=== PATIENT | female | born 1995 | race Caucasian/White ===

== ENCOUNTER 2021-04-24 08:50 | Day surgery (SDCO) | payer OTHER ==
[~2021-04-24] VITALS: Ht 165.1 cm; Wt 63.5 kg
[2021-04-24 09:38] LABS: BASOPHIL 0.2 % (0-2); EOSINOPHIL 0.8 % (0-5); HCT 36.8 % (37.0-47.0); HGB 11.6 g/dl (12.5-16.0); LYMPHOCYTE 10.9 % (15-48); MCH 25.7 pg (25.0-31.0); MCHC 31.5 g/dL (32.0-36.0); MCV 81.4 fL (78.0-100.0); MONOCYTE 4.8 % (0-12); MPV 9.8 fL (6.0-9.5); NEUTROPHIL 82.5 % (41-80); NRBC 0; PLT 283 K/uL (150-400); RBC 4.52 M/uL (4.20-5.40); RDW 14.3 % (11.5-14.0); WBC 14.3 K/uL (4.0-10.5)
[2021-04-24 09:49] LABS: ALBUMIN 2.9 g/dL (3.4-5.0); BILIRUBIN - TOTAL 0.2 mg/dL (0.2-1.0); BUN/CREAT RATIO (CALC) 15.4 RATIO; CREATININE 0.52 mg/dL (0.51-0.95); GLOBULIN (CALCULATION) 4.4 g/dL; POTASSIUM 3.8 mmol/L (3.5-5.1); TOTAL PROTEIN 7.3 g/dL (6.4-8.2)
[2021-04-24 09:58] LABS: LACTIC ACID 1.1 mmol/L (0.4-1.9)
[2021-04-24 10:20] LABS: BILIRUBIN NEGATIVE (NEGATIVE); BLOOD 1+ Ery/uL (NEGATIVE); CLARITY CLEAR (CLEAR); COLOR YELLOW (YELLOW); GLUCOSE (U) NORMAL (NORMAL); LEUKOCYTES TRACE Leu/uL (NEGATIVE); NITRITE NEGATIVE (NEGATIVE); PROTEIN NEGATIVE (NEGATIVE); UROBILINOGEN 0.2 mg/dL (0.2-1.0); pH 6.5 (5.0-9.0)
[2021-04-24 10:35] LABS: BACTERIA 1+
[2021-04-25 06:01] LABS: BASOPHIL 0.3 % (0-2); EOSINOPHIL 1.2 % (0-5); HGB 9.8 g/dl (12.5-16.0); LYMPHOCYTE 17.7 % (15-48); MCH 25.5 pg (25.0-31.0); MCHC 30.6 g/dL (32.0-36.0); MCV 83.1 fL (78.0-100.0); MONOCYTE 5.6 % (0-12); NEUTROPHIL 74.4 % (41-80); NRBC 0; PLT 251 K/uL (150-400); RBC 3.85 M/uL (4.20-5.40); RDW 14.4 % (11.5-14.0); WBC 11.6 K/uL (4.0-10.5)
== END 2021-04-26 12:00 | disposition home or self-care (01) ==
LOC: FER 08:50 → FOB 11:03
PROVIDERS: Emergency Medicine; ADMIT Obstetrics & Gynecology
DX: O86.12 Endometritis following delivery (principal); O90.81 Anemia of the puerperium; D64.9 Anemia, unspecified; O99.285 Endocrine, nutritional and metabolic diseases complicating the puerperium; E53.8 Deficiency of other specified B group vitamins; Z88.8 Allergy status to other drugs, medicaments and biological substances; Z20.822 Contact with and (suspected) exposure to COVID-19
CPT/HCPCS: 36415; 76856; 80053; 80170; 81001; 83605; 85025; 87040; 87088; G0378; J0290; J1580; J1885; J2270; J2405; J7030; J7120; U0002